=== PATIENT | female | born 1985 | race Caucasian/White ===

== ENCOUNTER → 2016-03-23 | Outpatient (CLI) | payer MEDICAID ==
[~2016-03-23] MED LIST: ACETAMINOPHEN &1 TA1 PO; BACTRIM DS 8001 TAB PO; BENADRYL25 M1 PO; BENZONATATE100 MG PO; BUPROPION HYDR100 M2 PO; CIPRO 500MG TA500 MG PO; DOXYCYCLINE HY100 M1 PO; GABAPENTIN 600600 MG PO; IBUPROFEN800 MG PO; IRON TABLETS325 MG PO; KEFLEX 500MG.500 MG PO; LORTAB 5/500 501 TAB PO; MEDROL 4MG. DOSE4 MG PO; MOTRIN 400MG.400 MG PO; NICOTINE T21 MG/24 H TD; NOMEDS; NORCO1 TAB PO; PERCOCET 5/3251 EACH PO; PHENERGAN 25MG.25 M1 PO; POLYMYXIN B OP; PRENATAL LOW IR1 TA1 PO; TESSALON PERLE100 MG PO; TRIMETHOPRIM OP; VOLTAREN75 MG PO; ZITHROMAX Z PA250 MG PO; [UNRECOGNIZED DRUG - OTHER] OP
[2016-03-23 15:37] LABS: AMPHETAMINES/METAMPHETAMINES NEGATIVE ng/mL (<1000)
== END ==
LOC: LAB 14:21
PROVIDERS: Emergency Medicine
DX: M51.16 Intervertebral disc disorders with radiculopathy, lumbar region (principal)

== ENCOUNTER → 2016-04-20 | Outpatient (CLI) | payer MEDICAID ==
[2016-04-20 15:45] LABS: AMPHETAMINES/METAMPHETAMINES NEGATIVE ng/mL (<1000)
[2016-04-20 17:28] LABS: LYMPH # 2.4 K/mm3 (0.7-4.5); LYMPH % 32.3 % (10-50.0)
[2016-04-20 17:29] LABS: HEMOGLOBIN 13.8 g/dL (12.2-16.2)
[2016-04-20 17:43] LABS: BUN 14 mg/dL (7-18)
[2016-04-20 17:52] LABS: GFR (ESTIMATED) 117 ML/MIN (59-)
== END ==
LOC: LAB 14:21
PROVIDERS: Emergency Medicine
DX: Z79.899 Other long term (current) drug therapy (principal); E66.3 Overweight

== ENCOUNTER → 2016-06-25 | Outpatient (CLI) | payer MEDICAID ==
[2016-06-25 15:35] LABS: AMPHETAMINES/METAMPHETAMINES POSITIVE ng/mL (<1000)
== END ==
LOC: LAB 14:18
PROVIDERS: Emergency Medicine
DX: Z79.899 Other long term (current) drug therapy (principal)

== ENCOUNTER → 2016-07-10 | Outpatient (CLI) | payer MEDICAID ==
[2016-07-10 19:15] LABS: AMPHETAMINES/METAMPHETAMINES POSITIVE ng/mL (<1000)
== END ==
LOC: LAB 17:52
PROVIDERS: Emergency Medicine
DX: Z79.899 Other long term (current) drug therapy (principal)

== ENCOUNTER 2017-01-19 09:42 | Emergency (ER) | payer MEDICAID ==
[~2017-01-19] VITALS: Ht 162.6 cm; Wt 56.7 kg
[~2017-01-19 09:42] MED LIST changes: +BACTRIM DS 8001 TA1 PO
--- OUTSIDE RECORDS SUMMARY | 2017-01-19 09:48 | External Medical Summary Rpt | CCD ---
Author Author , BRANDON Organization BRANDON Address Unknown Phone [email or web address] Care Team Providers Care Crisis Mental Health Therapist Name Role Phone Nilay Heredia III, MD, Nilay Lau III, MD Purpose Continuity of Care Document - 06-29-2012 through 2016 Problems Code Diagnosis DOS Provider Status 520.8 520.8 TOOTH 07-17-2012 Chivo HERRERA/CADEN [facility] M54.9 DORSALGIA, UNSPECIFIED N39.0 URINARY TRACT INFECTION, SITE NOT SPECIFIED S30.0XXA CONTUSION OF LOWER BACK AND PELVIS, INITIAL ENCOUNTER Allergies, Adverse Reactions, Alerts Type Drug Allergy Adverse Reaction to Substance Substance Reaction Severity Penicillin I-HIVES Intermediate Cephalexin I-HIVES Intermediate Codeine I-HIVES Intermediate Acetaminophen I-HIVES Intermediate Oxycodone I-HIVES Intermediate Vital Signs 07-17-2012 13:49 Name Value Interpretat Reference Comment ion Range BP 67 mm[Hg] Diastolic BP Systolic 131 mm[Hg] Heart 89 /min Rate/Pulse O2% 99 % Respiratory 16 /min Rate 07-17-2012 13:48 Name Value Interpretat Reference Comment ion Range BP 67 mm[Hg] Diastolic BP Systolic 131 mm[Hg] Heart 89 /min Rate/Pulse O2% 99 % Respiratory 16 /min Rate 06-29-2012 11:30 Name Value Interpretat Reference Comment ion Range BP 62 mm[Hg] Diastolic BP Systolic 118 mm[Hg] Heart 79 /min Rate/Pulse O2% 100 % Respiratory 18 /min Rate 06-29-2012 11:27 Name Value Interpretat Reference Comment ion Range BP 62 mm[Hg] Diastolic BP Systolic 118 mm[Hg] Heart 79 /min Rate/Pulse O2% 100 % Respiratory 18 /min Rate Encounters Encounter Start End Date Code Location Performer Type Date Emergency PADMAJA Lau (ER) 3 13:19 3 13:49 [facility] Nilay E. Emergency PADMAJA Choudhury MD (ER) 3 11:35 3 11:36 [facility]
--- OUTSIDE RECORDS SUMMARY | 2017-01-19 09:48 | External Medical Summary Rpt | CCD ---
Author Author Conduent Organization Condu[employer] Address Unknown Phone Unavailable Purpose Continuity of Care Document - through 2016
--- OUTSIDE RECORDS SUMMARY | 2017-01-19 09:48 | External Medical Summary Rpt | CCD ---
Author Author , BRANDON Organization BRANDON Address Unknown Phone [email or web address] Care Team Providers Care Salesperson Burial Needs Name Role Phone Nilay Heredia III, MD, Nilay Lau III, MD Purpose Continuity of Care Document - 06-29-2012 through 2016 Problems Code Diagnosis DOS Provider Status 520.8 520.8 TOOTH 07-17-2012 Chivo HERRERA/CADEN [facility] M54.9 DORSALGIA, UNSPECIFIED N39.0 URINARY TRACT INFECTION, [...] PADMAJA Lau (ER) 3 13:19 3 13:49 [facility] Nilay E. Emergency PADMAJA Choudhury MD (ER) 3 11:35 3 11:36 [facility]
--- OUTSIDE RECORDS SUMMARY | 2017-01-19 09:48 | External Medical Summary Rpt | CCD ---
Author Author , BRANDON Organization BRANDON Address Unknown Phone [email or web address] Immunization Name Date Rout CVX Reac Dose Comm Prov Is Faci e tion ent ider Refu lity Give sed n Tdap 07-0 Intr 115 0.50 Hist CHACHA No H201 , 6-20 amus mL oric MICHAEL Adso 16 cula al R rbed r Info AMY rmat SON ion - Sour ce Unsp ecif ied
--- OUTSIDE RECORDS SUMMARY | 2017-01-19 09:48 | External Medical Summary Rpt | CCD ---
Author Author , BRANDON Organization BRANDON Address Unknown Phone [email or web address] Immunization Name Date Rout CVX Reac Dose Comm Prov Is Faci e tion ent ider Refu lity Give sed n Tdap 07-0 Intr 115 0.50 Hist CHACHA No H201 , 6-20 amus mL oric MICHAEL Adso 16 cula al R rbed r Info AMY rmat SON ion - Sour ce Unsp ecif ied
--- NOTE | 2017-01-19 09:59 | Urgent Treatment Center Report ---
History of Present Issue Date/Time Seen by Provider 01/19/17 0978 Visit Reason Pt arrived: Presenting Problem: Location if Accident: Onset of symptoms date/time:/ or onset unknown for: Have you (or family members/close friends) recently traveled outside the [place]? If Yes, where/when: Have you had exposure to infectious disease within the past month? TB? Other? Specify: Source patient, RN notes reviewed Exam Limitations no limitations Comment Rash on face X 1 week. Very fine bumps, worse around nose and on cheekbones. Hydrocortisone made it hurt worse. ALLERGIES Coded Allergies: Penicillins (Mild, I-HIVES 08/06/16) cephalexin (From KEFLEX) (08/06/16) codeine (I-HIVES 08/06/16) Home Medications Reported Medications BUPROPION HCL (Bupropion HCl Sr) 75 MG PO BID Gabapentin (Gabapentin 600MG) 600 MG PO Q8 HYDROCODONE/ACETAMINOPHEN (Lehr 7.5-325 Tablet) 1 TAB PO TID History Medical History General CAD? No Angina: No NM: No Hypertension? No Hyperlipidemia? No CHF? No DVT? No PE? No COPD? No Asthma? No Anemia? No GERD? No Gastric ulcers? No GI Bleed? No Hernia? No Thyroid Problems? No Hypothyroidism? No CVA? No Seizures? No Diabetes? No Renal Insuffiency? No UTI? No Stones? No BPH? No GB Disease: No Nephritic Syndrome? No Asplenia? No Hepatitis? No Sickle Cell Disease? No Arthritis? No Migraines? No Cataracts? No Glaucoma? No MRSA? No HIV? No TB? No Anxiety? No Depression? No Cancer? No Site: N More? Yes Additional hx: ADD Immunization HX DT/Tetanus 1-4 YRS Flu NEVER Pneumonia Never Had Surgical Hx Previous Surgery?Y L THUMB R GROIN WISDOM TEETH Family History Family HX Diabetes Yes CAD No Hypertension Yes Hyperlipidemia No Cancer Yes TB No Social History Smoking Hx Packs/day < 1 Pack Alcohol Alcohol: No Review of Systems All Other Systems Reviewed and Negative Skin see HPI, rash Physical Exam Vital Signs Vital Signs Date Time Temp Pulse Resp B/P Pulse O2 O2 Flow FiO2 Ox Delivery Rate 01/19 1000 98.7 70 20 129/80 99 General Appearance normal appearance, WD/WN Respiratory Status No: respiratory distress. Cardiovascular regular rate/rhythm Neurologic alert, oriented x 3 Skin rash Lymphatic no adenopathy Medical Decision Making LABS/Meds/Orders Pt receiving controlled substance in ED? No Departure Departure Time of Disposition 1012 Disposition DC Home or Self Care(routine) Clinical Impression Primary Impression: Perioral dermatitis Condition STABLE Referrals Mary WOODWARD,Bryan Francis (Family) Patient Instructions DI for Rash Discharge Counseling Counseled pt/family regarding diagnosis, medications/RX, home care, follow up needs Prescriptions Current Visit Scripts DOXYCYCLINE MONOHYDRATE (Doxycycline Monohydrate) 100 MG PO BID #20 TAB at 1014
--- NOTE | 2017-01-19 09:59 | Urgent Treatment Center Report ---
History of Present Issue Date/Time Seen by Provider 01/19/17 0981 Visit Reason Pt arrived: Presenting Problem: Location if Accident: Onset of symptoms date/time:/ or onset unknown for: Have you (or family members/close friends) recently traveled outside the [place]? If Yes, where/when: Have you had exposure to infectious disease within the past month? TB? Other? Specify: Source patient, RN notes reviewed Exam Limitations no limitations Comment Rash on face X 1 week. Very fine bumps, worse around nose and on cheekbones. Hydrocortisone made it hurt worse. ALLERGIES Coded Allergies: Penicillins (Mild, I-HIVES 08/06/16) cephalexin (From KEFLEX) (08/06/16) codeine (I-HIVES 08/06/16) Home Medications Reported Medications BUPROPION HCL (Bupropion HCl Sr) 75 MG PO BID Gabapentin (Gabapentin 600MG) 600 MG PO Q8 HYDROCODONE/ACETAMINOPHEN (Neely 7.5-325 Tablet) 1 TAB PO TID History Medical History General CAD? No Angina: No HI: No Hypertension? No Hyperlipidemia? No CHF? No DVT? No PE? No COPD? No Asthma? No Anemia? No GERD? No Gastric ulcers? No GI Bleed? No Hernia? No Thyroid Problems? No Hypothyroidism? No CVA? No Seizures? No Diabetes? No Renal Insuffiency? No UTI? No Stones? No BPH? No GB Disease: No Nephritic Syndrome? No Asplenia? No Hepatitis? No Sickle Cell Disease? No Arthritis? No Migraines? No Cataracts? No Glaucoma? No MRSA? No HIV? No TB? No Anxiety? No Depression? No Cancer? No Site: N More? Yes Additional hx: ADD Immunization HX DT/Tetanus 1-4 YRS Flu NEVER Pneumonia Never Had Surgical Hx Previous Surgery?Y L THUMB R GROIN WISDOM TEETH Family History Family HX Diabetes Yes CAD No Hypertension Yes Hyperlipidemia No Cancer Yes TB No Social History Smoking Hx Packs/day < 1 Pack Alcohol Alcohol: No Review of Systems All Other Systems Reviewed and Negative Skin see HPI, rash Physical Exam Vital Signs Vital Signs Date Time Temp Pulse Resp B/P Pulse O2 O2 Flow FiO2 Ox Delivery Rate 01/19 1000 98.7 70 20 129/80 99 General Appearance normal appearance, WD/WN Respiratory Status No: respiratory distress. Cardiovascular regular rate/rhythm Neurologic alert, oriented x 3 Skin rash Lymphatic no adenopathy Medical Decision Making LABS/Meds/Orders Pt receiving controlled substance in ED? No Departure Departure Time of Disposition 1012 Disposition DC Home or Self Care(routine) Clinical Impression Primary Impression: Perioral dermatitis Condition STABLE Referrals Mary WOODWARD,Bryan Francis (Family) Patient Instructions DI for Rash Discharge Counseling Counseled pt/family regarding diagnosis, medications/RX, home care, follow up needs Prescriptions Current Visit Scripts DOXYCYCLINE MONOHYDRATE (Doxycycline Monohydrate) 100 MG PO BID #20 TAB at 1014
[2017-01-19] MEDS ORDERED: DOXYCYCLINE100 M7 PO (10:13)
[2017-01-19 10:25] VITALS: BP 132/79
== END 2017-01-19 10:25 | disposition home or self-care (01) ==
LOC: UTC 09:42
DX: L71.0 Perioral dermatitis (principal); Z88.5 Allergy status to narcotic agent; Z88.0 Allergy status to penicillin; Z88.8 Allergy status to other drugs, medicaments and biological substances; Z79.891 Long term (current) use of opiate analgesic; Z79.899 Other long term (current) drug therapy